=== PATIENT | male | born 1960 | race Caucasian/White ===

== ENCOUNTER 2016-12-28 11:03 | Emergency (ER) | payer OTHER ==
[~2016-12-28] VITALS: Ht 182.9 cm; Wt 131.5 kg
[~2016-12-28 11:03] MED LIST: CEPH500C3 PO; COZA50TA PO; OXYC-360 PO; RIVA10 PO; SENN1TAB11 PO
[2016-12-28 11:05] VITALS: BP 203/113; PULSE 73; RESP 12; TEMP 98.3; O2SAT 96
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
[2016-12-28] MEDS ORDERED: IBUP800T23 PO (11:48)
[2016-12-28] MEDS ORDERED: CYCL1TAB29 PO (11:48)
== END 2016-12-28 12:20 | disposition home or self-care (01) ==
LOC: NEPK 11:03
DX: S86.911A Strain of unspecified muscle(s) and tendon(s) at lower leg level, right leg, initial encounter (principal); S39.012A Strain of muscle, fascia and tendon of lower back, initial encounter; V29.49XA Motorcycle driver injured in collision with other motor vehicles in traffic accident, initial encounter; Y92.410 Unspecified street and highway as the place of occurrence of the external cause
CPT/HCPCS: 99283